=== PATIENT | male | born 1985 | race African-American/Black ===

== ENCOUNTER 2021-05-05 20:29 | Emergency (ER) | payer MEDICAID, OTHER ==
[~2021-05-05] VITALS: Ht 195.6 cm; Wt 83.0 kg
[2021-05-05] MEDS ORDERED: SODIUM CHLORIDE FLUSH 10ML SYR IVF ONE (21:00)
[2021-05-05 21:12] LABS: MEAN CORPUSCULAR HEMOGLOBIN 28.7 pg (27.5-34.5); MEAN CORPUSCULAR HGB CONC 33.3 g/dL (33.2-36.2); MEAN PLATELET VOLUME 9.6 fL (7.4-10.4); PLATELET COUNT 226 x10^3/uL (130-400); RED BLOOD COUNT 5.49 x10^6/uL (4.38-5.82); RED CELL DISTRIBUTION WIDTH 14.2 % (9.4-14.8)
[2021-05-05 21:16] LABS: ALANINE AMINOTRANSFERASE 30 U/L (12-78); ALBUMIN 4.3 g/dL (3.4-5.0); ANION GAP 6 mmol/L (5-15); CALCIUM 9.1 mg/dL (8.5-10.1); CHLORIDE 109 mmol/L (98-107); CREATININE 0.98 mg/dL (0.7-1.3)
[2021-05-05 21:19] LABS: ALKALINE PHOSPHATASE 60 U/L (45-117); BILIRUBIN,TOTAL 1.1 mg/dL (0.2-1.0); TOTAL PROTEIN 8.5 g/dL (6.4-8.2)
[2021-05-05 21:58] LABS: EOS% (MANUAL) 2 % (1-7); LYMPHS% (MANUAL) 50 % (22-44); MONOS#(MANUAL) 0.45 x10^3/uL (0.3-2.7); MONOS% (MANUAL) 9 % (2-9); REACTIVE LYMPHS # (MANUAL) 0.35 x10^3/uL (0-0); REACTIVE LYMPHS % (MANUAL) 7 % (0-0); SEGS% (MANUAL) 32 % (42-75)
[2021-05-05 21:59] LABS: ANISOCYTOSIS 1+; OVALOCYTES 1+; SCHISTOCYTES 1+
[2021-05-05 22:00] LABS: <PLATELET ESTIMATE> ADEQUATE; LARGE PLATELETS 1+
--- NOTE | 2021-05-05 23:00 | NUR ---
pt resting on [place], denies needs at this time
--- NOTE | 2021-05-05 23:11 | NUR ---
pt presents to the ed with abd bloating and green soft bm. pt states he has had abd pain for a month. pt provided sample and it is being sent to the lab. pt in gown and placed on continuous monitoring.
--- NOTE | 2021-05-06 | NUR ---
pt resting on gurney, denies needs at this time.
[2021-05-06 00:40] LABS: CLOSTRIDIUM DIFFICILE ANTIGEN NEGATIVE; CLOSTRIDIUM DIFFICILE TOXIN NEGATIVE (Negative)
--- NOTE | 2021-05-06 01:09 | NUR ---
this RN informed pt that we're still waiting on labs, pt resting on gurney, denies needs at this time.
--- NOTE | 2021-05-06 02:15 | NUR ---
pt resting on gurney, denies needs at this time.
[2021-05-06 03:04] VITALS: BP 117/82
--- NOTE | 2021-05-06 03:04 | NUR ---
Patient given discharge instructions and they have confirmed that they understand the instructions. Patient ambulatory with steady gait.
== END 2021-05-06 03:10 | disposition home or self-care (01) ==
LOC: ED 05-06
DX: R10.32 Left lower quadrant pain (principal); R19.7 Diarrhea, unspecified
CPT/HCPCS: 36415; 74021; 80053; 83690; 85025; 86308; 87324; 87496; 87806; 89055; 99285; G0475

== ENCOUNTER 2021-06-04 22:14 | Emergency (ER) | payer MEDICAID ==
[~2021-06-04] VITALS: Ht 195.6 cm; Wt 81.4 kg
[2021-06-04 22:28] VITALS: BP 97/52
--- NOTE | 2021-06-04 23:52 | NUR ---
Task Rn: Patient given discharge instructions and they have confirmed that they understand the instructions. Patient ambulatory with steady gait. NAD, all questions answered appropriately, denies additional needs at this time. No personal belongings left in room after discharge.
== END 2021-06-04 23:54 | disposition home or self-care (01) ==
LOC: ED 23:53
DX: U07.1 COVID-19 (principal); B34.9 Viral infection, unspecified; R51.9 Headache, unspecified; R06.02 Shortness of breath
CPT/HCPCS: 71045; 99284; U0003; U0005